=== PATIENT | male | born 1940 | race Caucasian/White ===

== ENCOUNTER 2017-11-27 14:23 | Observation (INO) | payer MEDICARE, OTHER ==
[~2017-11-27] VITALS: Ht 175.3 cm; Wt 76.0 kg
[~2017-11-27 14:23] MED LIST: ASPI-650 PO; ATOR40TA78 PO; CARV6.252 PO; FURO40TA6 PO; HYDR-3240 PO; INSU100C5 SQ-INSULIN; INSU100I28 SQ-INSULIN; INSU100V8 SQ; LISI-167 PO; SPIR25TA PO; TAMS-11 PO
[2017-11-27] MEDS ORDERED: SODIUM CHLORIDE FLUSH 10ML SYR IVF ONE (15:00)
[2017-11-27 15:25] LABS: BASOPHILS % (AUTO) 1 % (0-1); EOSINOPHILS # (AUTO) 0.17 x10^3/uL (0-0.4); EOSINOPHILS % (AUTO) 2 % (1-7); LYMPHOCYTES # (AUTO) 2.06 x10^3/uL (1-3.4); LYMPHOCYTES % (AUTO) 20 % (22-44); MD NO; MEAN CORPUSCULAR HEMOGLOBIN 32.9 pg (27.5-34.5); MEAN CORPUSCULAR HGB CONC 33.7 g/dL (33.2-36.2); MEAN CORPUSCULAR VOLUME 97.4 fL (81-97); MEAN PLATELET VOLUME 8.9 fL (7.4-10.4); MONOCYTES % (AUTO) 6 % (2-9); NEUTROPHILS # (AUTO) 7.32 x10^3/uL (1.8-6.8); NEUTROPHILS % (AUTO) 71 % (42-75); PLATELET COUNT 246 x10^3/uL (130-400); RED BLOOD COUNT 4.82 x10^6/uL (4.38-5.82); RED CELL DISTRIBUTION WIDTH 13.3 % (9.4-14.8)
[2017-11-27 15:35] LABS: CHLORIDE 103 mmol/L (98-107)
[2017-11-27 15:36] LABS: ALBUMIN 3.9 g/dL (3.4-5.0); ANION GAP 6 mmol/L (5-15); CALCIUM 9.4 mg/dL (8.5-10.1); CREATININE 1.57 mg/dL (0.7-1.3)
[2017-11-27] MEDS ORDERED: SODIUM CHLORIDE 0.9% 1,000ML IVBOLUS ONE (16:00)
[2017-11-27] MEDS ORDERED: OMNIPAQUE 350 MG/ML, 100ML BOTTLE ONE (16:04)
[2017-11-27] MEDS ORDERED: INSU100V8 SQ (16:48)
[2017-11-27] MEDS ORDERED: LISI2.5T PO (16:48)
[2017-11-27] MEDS ORDERED: ASPI-496 PO (16:48)
[2017-11-27] MEDS ORDERED: MORPHINE SULFATE 4 MG/ML, 1ML IVPush PRN (17:30)
[2017-11-27] MEDS ORDERED: ACETAMINOPHEN 325 MG TABLET PO PRN (17:30)
[2017-11-27] MEDS ORDERED: KETOROLAC 30 MG/1 ML IVPush PRN (17:30)
[2017-11-27] MEDS: INSULIN LISPRO 100 UNITS/ML, PEN SQ-INSULIN SCH ×2 (17:30→20:42)
[2017-11-27] MEDS ORDERED: ENOXAPARIN 40 MG/0.4 ML SQ SCH (17:30)
[2017-11-27] MEDS ORDERED: POLYETHYLENE GLYCOL 17 GM PACKET PO PRN (17:30)
[2017-11-27 18:12] LABS: MICROSCOPIC AUTO
[2017-11-27 18:16] LABS: CULTURE INDICATED? NO
[2017-11-27 19:39] VITALS: BP 136/78
[2017-11-27] MEDS: LACTATED RINGERS 1,000 ML IV SCH (19:49)
[2017-11-27] MEDS: INSULIN GLARGINE 100 UNITS/ML, PEN SQ-INSULIN SCH (20:41)
[2017-11-27] MEDS: HYDROcodone/APAP 5/325 TABLET PO PRN (22:03)
[2017-11-28 00:17] VITALS: BP 106/65
[2017-11-28] MEDS: HYDROcodone/APAP 5/325 TABLET PO PRN (02:09)
[2017-11-28] MEDS: LACTATED RINGERS 1,000 ML IV SCH (06:02)
[2017-11-28 06:36] VITALS: BP 125/79
[2017-11-28] MEDS: INSULIN GLARGINE 100 UNITS/ML, PEN SQ-INSULIN SCH (08:23)
[2017-11-28] MEDS: INSULIN LISPRO 100 UNITS/ML, PEN SQ-INSULIN SCH ×2 (08:26→11:00)
[2017-11-28] MEDS ORDERED: LISINOPRIL 5 MG TABLET PO SCH (09:00)
[2017-11-28] MEDS ORDERED: ASPIRIN 81 MG TABLET EC PO SCH (09:00)
[2017-11-28] MEDS ORDERED: SENNA/DOCUSATE TABLET PO SCH (09:00)
== END 2017-11-28 12:13 | disposition home or self-care (01) ==
LOC: ED 16:42 → EDIP 16:43 → INTOOBSV 16:43 → ED 16:58 → 3NE 17:21
PROVIDERS: ADMIT Internal Medicine; ATTEND Internal Medicine
DX: S22.42XA Multiple fractures of ribs, left side, initial encounter for closed fracture (principal); E11.9 Type 2 diabetes mellitus without complications; I25.2 Old myocardial infarction; I25.10 Atherosclerotic heart disease of native coronary artery without angina pectoris; N40.0 Benign prostatic hyperplasia without lower urinary tract symptoms; Z87.442 Personal history of urinary calculi; Z86.73 Personal history of transient ischemic attack (TIA), and cerebral infarction without residual deficits; W01.0XXA Fall on same level from slipping, tripping and stumbling without subsequent striking against object, initial encounter; Y92.002 Bathroom of unspecified non-institutional (private) residence as the place of occurrence of the external cause
CPT/HCPCS: 36415; 71046; 74177; 80048; 81001; 82040; 82962; 83690; 85025; 93005; 96360; 96361; 96372; 99285; G0378; J1650; J1815; J7120; Q9967